=== PATIENT | female | born 1960 | race African-American/Black ===

== ENCOUNTER 2018-01-11 11:07 | Emergency (ER) | payer OTHER ==
[~2018-01-11] VITALS: Ht 152.4 cm; Wt 63.5 kg
[2018-01-11 11:25] VITALS: BP 128/77; Ht 152.4 cm; Wt 63.5 kg
== END 2018-01-11 12:11 | disposition home or self-care (01) ==
LOC: ED 11:07
DX: S61.306D Unspecified open wound of right little finger with damage to nail, subsequent encounter (principal); X58.XXXD Exposure to other specified factors, subsequent encounter

== ENCOUNTER 2018-10-16 12:40 | Emergency (ER) | payer OTHER ==
[~2018-10-16] VITALS: Ht 152.4 cm; Wt 67.1 kg
[2018-10-16 12:41] VITALS: Ht 152.4 cm; Wt 67.1 kg
[2018-10-16 14:29] VITALS: BP 119/77
== END 2018-10-16 14:29 | disposition home or self-care (01) ==
LOC: ED 12:40
DX: S61.213A Laceration without foreign body of left middle finger without damage to nail, initial encounter (principal); S61.215A Laceration without foreign body of left ring finger without damage to nail, initial encounter; W45.8XXA Other foreign body or object entering through skin, initial encounter; Y93.89 Activity, other specified; Y92.89 Other specified places as the place of occurrence of the external cause; Y99.8 Other external cause status
CPT/HCPCS: 90715; J2001

== ENCOUNTER 2018-10-18 14:11 | Emergency (ER) | payer OTHER ==
[~2018-10-18] VITALS: Ht 152.4 cm; Wt 67.1 kg
[2018-10-18 14:12] VITALS: Ht 152.4 cm; Wt 67.1 kg
[2018-10-18 15:03] VITALS: BP 128/69
== END 2018-10-18 15:03 | disposition home or self-care (01) ==
LOC: ED 14:11
DX: S61.412D Laceration without foreign body of left hand, subsequent encounter (principal); X58.XXXD Exposure to other specified factors, subsequent encounter

== ENCOUNTER 2018-10-23 10:01 | Emergency (ER) | payer OTHER ==
[~2018-10-23] VITALS: Ht 152.4 cm; Wt 67.1 kg
[2018-10-23 10:02] VITALS: Ht 152.4 cm; Wt 67.1 kg
[2018-10-23 10:36] VITALS: BP 140/96
== END 2018-10-23 10:36 | disposition home or self-care (01) ==
LOC: ED 10:01
DX: S61.213D Laceration without foreign body of left middle finger without damage to nail, subsequent encounter (principal); S61.211D Laceration without foreign body of left index finger without damage to nail, subsequent encounter; X58.XXXD Exposure to other specified factors, subsequent encounter

== ENCOUNTER 2018-10-25 14:13 | Emergency (ER) | payer OTHER ==
[~2018-10-25] VITALS: Ht 152.4 cm; Wt 67.1 kg
[2018-10-25 14:15] VITALS: Ht 152.4 cm; Wt 67.1 kg
[2018-10-25 15:05] VITALS: BP 126/65
== END 2018-10-25 15:05 | disposition home or self-care (01) ==
LOC: ED 14:13
DX: S61.215D Laceration without foreign body of left ring finger without damage to nail, subsequent encounter (principal); S61.213D Laceration without foreign body of left middle finger without damage to nail, subsequent encounter; X58.XXXD Exposure to other specified factors, subsequent encounter

== ENCOUNTER 2018-10-29 19:42 | Emergency (ER) | payer OTHER ==
[~2018-10-29] VITALS: Ht 152.4 cm; Wt 69.9 kg
[2018-10-29 19:44] VITALS: Ht 152.4 cm; Wt 69.9 kg
[2018-10-29 20:12] VITALS: BP 133/71
== END 2018-10-29 20:12 | disposition home or self-care (01) ==
LOC: ED 19:42
DX: S61.213D Laceration without foreign body of left middle finger without damage to nail, subsequent encounter (principal); S61.215D Laceration without foreign body of left ring finger without damage to nail, subsequent encounter; Z48.00 Encounter for change or removal of nonsurgical wound dressing; W45.8XXD Other foreign body or object entering through skin, subsequent encounter

== ENCOUNTER 2018-11-02 14:07 | Emergency (ER) | payer OTHER ==
[~2018-11-02] VITALS: Ht 172.7 cm; Wt 69.9 kg
[2018-11-02 14:10] VITALS: BP 113/52; Ht 172.7 cm; Wt 69.9 kg
== END 2018-11-02 14:15 | disposition home or self-care (01) ==
LOC: ED 14:07
DX: S61.402A Unspecified open wound of left hand, initial encounter (principal); X58.XXXA Exposure to other specified factors, initial encounter; Y93.89 Activity, other specified; Y92.89 Other specified places as the place of occurrence of the external cause; Y99.8 Other external cause status